=== PATIENT | female | born 1995 | race Caucasian/White ===

== ENCOUNTER 2016-06-19 15:29 | Emergency (ER) | payer OTHER ==
[2016-06-19 15:44] LABS: URINE CULTURE PL NEEDED? NO; URINE SOURCE CLEAN CATCH
[2016-06-19 16:15] LABS: MANUAL DIFF NEEDED? NO
[2016-06-19 16:17] LABS: BILIRUBIN URINE NEGATIVE (NEGATIVE); BLOOD URINE NEGATIVE (NEGATIVE); CLARITY VERY CLOUDY (CLEAR); COLOR YELLOW; GLUCOSE URINE NEGATIVE (NEGATIVE); LEUKOCYTES URINE NEGATIVE (NEGATIVE); NITRITE URINE NEGATIVE (NEGATIVE); PROTEIN URINE NEGATIVE (NEGATIVE); SP GRAVITY URINE 1.015; UROBILINOGEN URINE NORMAL
[2016-06-19 16:18] LABS: URINE CAST NONE SEEN /LPF; URINE CRYSTAL NONE SEEN /HPF; URINE EPITHELIAL CELLS <10 /HPF (<10)
[2016-06-19 16:24] LABS: BASO% 0.2 % (0.0-0.8); EOS# 0.06 X1000 (0.0-0.7); EOS% 0.7 % (0.0-10.0); HEMATOCRIT 36.9 % (37.0-47.0); HEMOGLOBIN 12.7 g/dL (12.0-16.0); IMM GRAN# 0.02 X1000 (0.0-0.04); IMM GRAN% 0.2 % (0.0-0.5); LYMPH# 2.43 X1000 (1.2-3.4); LYMPH% 26.6 % (20.5-51.1); MCH 31.6 PG (27-31); MCHC 34.4 g/dL (33-37); MCV 91.8 FL (81-99); MONO# 0.62 X1000 (0.11-0.59); MONO% 6.8 % (1.7-9.3); MPV 10.5 FL (7.4-10.4); NEUT% 65.5 % (42.2-75.2); PLT 247 X1000 (130-400); RBC 4.02 XMIL (4.2-5.4)
[2016-06-19 16:48] LABS: AGAP 8; ALKALINE PHOSPHATASE 49 U/L (32-104); AMYLASE 62 U/L (20-200); BUN 13 mg/dL (8-22); CALCIUM 9.1 mg/dL (8.8-10.2); CHLORIDE 99 mmol/L (98-107); COSMO 268; GOT 13 U/L (10-30); GPT 9 U/L (10-36); LIPASE 25 U/L (13-60); POTASSIUM 3.9 mmol/L (3.5-5.1); SODIUM 134 mmol/L (136-145); TCO2 27 mmol/L (25-35); TOTAL BILIRUBIN < 0.15 mg/dL (0.20-1.00); TOTAL PROTEIN 6.6 g/dL (6.3-8.3)
--- NOTE | 2016-06-19 17:29 | PROVIDER DOCUMENTATION ---
HPI-Abdominal Pain/GI Problem - General Chief Complaint: Flank Pain Stated Complaint: VOMITING Time Seen by Provider: 06/19/16 17:25 Source: patient Allergies/Adverse Reactions: Patient Allergies Allergy/AdvReac Type Severity Reaction Status Date / Time No Known Allergies Allergy Verified 03/16/16 11:23 Home Medications: No Home Medications 03/16/16 - History of Present Illness-ABD Nature of Presenting Problems: 21 y/o WF approx 16 weeks c/o abdominal pain, right flank pain that radiates into the right arm, with nausea and vomiting, states she constipated, denies diarrhea with this. Denies fevers or chills. vomiting only after she eats. States has not appetite. Denies fevers, chills or weight loss. Reports pain with urination, but not burning. States the site hurts when she starts trying to go. States she has not seen an obgyn yet Review of Systems - Adult - REVIEW OF SYSTEMS - ADULT Constitutional: reports: no symptoms reported. denies: chills, fever, fatique Eyes: reports: no symptoms reported. denies: blurred vision, double vision, eye pain Ears, Nose, Mouth & Throat: reports: no symptoms reported. denies: ear pain, nose pain, throat pain Cardiovascular: reports: no symptoms reported. denies: chest pain, palpitations Respiratory: reports: no symptoms reported. denies: cough, shortness of breath Gastrointestinal: reports: abdominal pain, constipation, nausea, vomiting. denies: diarrhea Genitourinary: reports: no symptoms reported. denies: dysuria, discharge, frequency, incontinence Musculoskeletal: reports: no symptoms reported. denies: bone pain, back pain, muscle aches Integumentary: reports: no symptoms reported Neurological: reports: no symptoms reported. denies: headache/migraines Psychiatric: reports: no symptoms reported Endocrine: reports: no symptoms reported Hematologic/Lymphatic: reports: no symptoms reported Allergic/Immunologic: reports: no symptoms reported All Other Systems: Reviewed and Negative Past History - Adult - PAST MEDICAL HISTORY-ADULT Review of Records: reports: Old Records Reviewed, Nursing Assessment Review, Medications Reviewed, Social history reviewed & non-contributory. Major Childhood Illnesses: reports: denies history Cardiovascular: reports: denies history Respiratory: reports: denies history Gastrointestinal: reports: denies history Obstetrical/Gynecological: reports: ovarian cysts (left ) Genitourinary: reports: denies history Musculoskeletal: reports: denies history Neurological: reports: denies history Psychiatric: reports: anxiety, suicide attempt Endocrine/Immune: reports: denies history Other Conditions: reports: denies history - PRIOR SURGERIES/PROCEDURES Surgical/Procedure History: reports: none - IMMUNIZATION STATUS Childhood Immunizations: See Nurse Assessment Flu Vaccine: See Nurse Assessment - FAMILY HISTORY Family History: reviewed, not pertinent Physical Exam-General - PHYSICAL EXAM-ADULT Initial Vital Signs Reviewed: Yes - CONSTITUTIONAL General Appearance: appears well, alert, no apparent distress - EYES Eyes: PERRL/EOMI, pink conjunctivae - HEAD, EARS, NOSE, MOUTH & THROAT HENMT: normocephalic/atraumatic, moist mucous membranes, normal ENT inspection - NECK Neck: non-tender, full range of motion, supple, normal inspection. negative: C- spine tenderness - RESPIRATORY Respiratory: chest non-tender, lungs clear, normal breath sounds, no pleuratic chest pain, no respiratory distress, no accessory muscle use. negative: respiratory distress, decreased breath sounds, accessory muscle use, crackles, rales, rhonchi, wheezing - CARDIOVASCULAR Cardiovascular: normal peripheral pulses, regular rate, rhythm, no edema - GASTROINTESTINAL (ABDOMEN) Abdominal Exam: normal bowel sounds, non tender, soft, no organomegaly, no pulsatile mass, other (fundus at 1 inch below the umbilicus). negative: abdominal bruit, abnormal bowel sounds, distended, guarding, rigid, rebound, tenderness - LYMPHATIC Lymphatic: no adenopathy - MUSCULOSKELETAL Extremity: normal gait - SKIN Integumentary: normal color, normal turgor, warm/dry - NEUROLOGIC Neurologic: grossly normal, no motor/sensory deficits - PSYCHIATRIC Psych/Mental Status: normal mood/affect, normal thought content, normal thought process, oriented x 3 Progress - PLAN OF CARE/RESULTS Progress/Plan/Lab Results: Vital Signs Temp Pulse Resp BP Pulse Ox 06/19/16 15:36 97.8 F 85 18 126/69 100 No Known Allergies Allergy (Verified 03/16/16 11:23) No Home Medications 03/16/16 Dietary Diet NPO Start Sat Jun 19 1540 Laboratory 06/19/16 06/19/16 06/19/16 16:00 16:00 16:00 WBC 9.14 RBC 4.02 L Hgb 12.7 Hct 36.9 L MCV 91.8 MCH 31.6 H MCHC 34.4 RDW Std Deviation 12.8 Plt Count 247 MPV 10.5 H Immature Gran % (Auto) 0.2 Neut % (Auto) 65.5 Lymph % (Auto) 26.6 [place] % (Auto) 6.8 Eos % (Auto) 0.7 Baso % (Auto) 0.2 Immature Gran # (Auto) 0.02 Neut # (Auto) 5.99 Lymph # (Auto) 2.43 [place] # (Auto) 0.62 H Eos # (Auto) 0.06 Baso # (Auto) 0.02 Sodium 134 L Potassium 3.9 Chloride 99 Carbon Dioxide 27 Anion Gap 8 BUN 13 Creatinine 0.5 Estimated GFR/1.73 m2 > 60 BUN/Creatinine Ratio 26 Glucose 90 Calculated Osmolality 268 Calcium 9.1 Total Bilirubin < 0.15 L AST 13 ALT 9 L Alkaline Phosphatase 49 Total Protein 6.6 Albumin 4.0 Globulin 3.0 Albumin/Globulin Ratio 2.0 Amylase 62 Lipase 25 Ser , Semi-Qnt 80846.0 Urine Source Urine Color Urine Clarity Urine pH Ur Specific [place] Urine Protein Urine Ketones Urine Blood Urine Nitrite Urine Bilirubin Urine Urobilinogen Urine Microscopic RBC Urine WBC Ur Epithelial Cells Urine Crystals Urine Bacteria Urine Casts Urine Yeast Urine Glucose 06/19/16 15:40 WBC RBC Hgb Hct MCV MCH MCHC RDW Std Deviation Plt Count MPV Immature Gran % (Auto) Neut % (Auto) Lymph % (Auto) [place] % (Auto) Eos % (Auto) Baso % (Auto) Immature Gran # (Auto) Neut # (Auto) Lymph # (Auto) [place] # (Auto) Eos # (Auto) Baso # (Auto) Sodium Potassium Chloride Carbon Dioxide Anion Gap BUN Creatinine Estimated GFR/1.73 m2 BUN/Creatinine Ratio Glucose Calculated Osmolality Calcium Total Bilirubin AST ALT Alkaline Phosphatase Total Protein Albumin Globulin Albumin/Globulin Ratio Amylase Lipase Ser , Semi-Qnt Urine Source CLEAN CATCH Urine Color YELLOW Urine Clarity VERY CLOUDY A Urine pH 7.0 Ur Specific [place] 1.015 Urine Protein NEGATIVE Urine Ketones NEGATIVE Urine Blood NEGATIVE Urine Nitrite NEGATIVE Urine Bilirubin NEGATIVE Urine Urobilinogen NORMAL Urine Microscopic RBC Not Reportable Urine WBC NEGATIVE Ur Epithelial Cells <10 Urine Crystals NONE SEEN Urine Bacteria NEGATIVE Urine Casts NONE SEEN Urine Yeast NONE SEEN Urine Glucose NEGATIVE Orders Category Date Time Status NPO Diet 06/19/16 15:40 Active US OBS COMPLETE > 14 WKS [US] Stat Exams 06/19/16 17:29 Taken AMYLASE [CHEM] Stat Lab 06/19/16 16:00 Completed CBC WITH ELECTRONIC DIFF [HEME] Stat Lab 06/19/16 16:00 Completed COMPREHENSIVE METABOLIC PANEL [CHEM] Stat Lab 06/19/16 16:00 Completed LIPASE [CHEM] Stat Lab 06/19/16 16:00 Completed QUANT TEST Stat Lab 06/19/16 16:[address] W/POSS RFLX CULT [URINALYSIS] Stat Lab 06/19/16 15:40 Completed - ULTRASOUND (By Radiology) 1 US Study: Transvaginal Impression: Normal (viable iup. closed cervix, although short. placenta low lying. per radiology) Departure - Departure Time of Disposition Order: 18:50 DIAGNOSIS: Qualifiers: Weeks of gestation: 16 weeks Qualified Code(s): Z3A.16 - 16 weeks gestation of Disposition: HOME 01 Certified Medical Emergency: Emergent Condition: Stable Additional Instructions: Follow up with the [facility] nurse ED Follow Up Instructions: You have been treated by a care provider in the Emergency Department. These instructions are being provided to you so you can have an understanding of how to care for yourself upon discharge. Upon discharge from the Emergency Department, you are responsible for making arrangements for follow-up care by a physician of your choice. Take all prescribed medications as directed. Return to the Emergency Department immediately for any new or worsening symptoms. You may call the Physician Referral phone number at [phone] to obtain a list of Physicians who are taking new patients. Attestation - Physician/ Mid-level Attestation Patient care was provided by Mid-level provider (WAITER/WAITRESS BAR/PA):: Yes Mid-level provider:: Teresita Yan Mid-level documentation review:: The Mid-level provider documentation, treatment plan and medical decision making was reviewed by the physician who agrees with all treatment and medical decision making by the MLP.
[2016-06-19 19:08] VITALS: BP 109/075
--- NOTE | 2016-06-19 21:02 | Diag Imaging Result Document ---
PROCEDURE NAME: US OBS COMPLETE > 14 WKS - 06/19/2016 OBSTETRIC ULTRASOUND: COMPARISON: None available for this . FINDINGS: There is a single viable intrauterine gestation. The presentation is variable and the placenta is located posteriorly. The lower tip of the placenta approaches the cervix. Continued surveillance is recommended to exclude placenta previa. The cervix measures slightly short at 2.8 cm in length. Correlation with an endovaginal ultrasound for more accurate measurement is recommended. Otherwise, no gross or placental anomalies are identified. A 4 chamber heart, umbilical cord, bladder, kidneys, stomach, and spine are identified and are grossly unremarkable. The measured heart rate is 147 beats per minute. The gestational age by ultrasound is 16 weeks 4 days. IMPRESSION: Single viable intrauterine gestation as described with a somewhat low lying placenta and slightly short cervix. Please see above discussion.
== END 2016-06-19 19:06 | disposition home or self-care (01) ==
LOC: P.ED 15:29
DX: O26.892 Other specified pregnancy related conditions, second trimester (principal); R10.9 Unspecified abdominal pain; M79.601 Pain in right arm; R11.0 Nausea; K59.00 Constipation, unspecified; R30.9 Painful micturition, unspecified; O21.9 Vomiting of pregnancy, unspecified; Z3A.16 16 weeks gestation of pregnancy; Z87.42 Personal history of other diseases of the female genital tract
CPT/HCPCS: 76805; 80053; 81001; 82150; 83690; 84702; 85025

== ENCOUNTER 2016-11-29 22:47 | Inpatient (IN) ==
[2016-11-29] MEDS ORDERED: PITOCIN 30 UNITS/LR 30 UNITS/500 ML IV.SOLN IV SCH (22:52)
[2016-11-29] MEDS ORDERED: BRETHINE SUBQ PRN (22:52)
[2016-11-29] MEDS ORDERED: STADOL IV PRN ×3 (22:52)
[2016-11-29] MEDS ORDERED: AMBIEN PO PRN (22:52)
[2016-11-29] MEDS ORDERED: KEFZOL 1 GM/D5W 1 GM/50 ML IVPB IV PRN (22:52)
[2016-11-29] MEDS ORDERED: TYLENOL PO PRN (22:52)
[2016-11-29] MEDS ORDERED: ZOFRAN IV PRN (22:52)
[2016-11-29] MEDS ORDERED: PEPCID IV PRN (22:52)
[2016-11-29] MEDS ORDERED: AMPICILLIN 2 GM/NS 2 GM/100 ML IVPB IV ONE (23:15)
[2016-11-29] MEDS: LR 1,000 ML IV SCH (23:50)
[2016-11-30 00:55] LABS: URINE SOURCE VOIDED
[2016-11-30 00:55] LABS: MANUAL DIFF NEEDED? NO
[2016-11-30] MEDS ORDERED: CYTOTEC PO ONE (01:00)
[2016-11-30 01:03] LABS: BASO% 0.2 % (0.0-0.8); EOS# 0.26 X1000 (0.0-0.7); EOS% 2.8 % (0.0-10.0); HEMATOCRIT 34.8 % (37.0-47.0); IMM GRAN# 0.07 X1000 (0.0-0.04); IMM GRAN% 0.8 % (0.0-0.5); LYMPH# 2.24 X1000 (1.2-3.4); LYMPH% 24.3 % (20.5-51.1); MCH 31.3 PG (27-31); MCHC 34.5 g/dL (33-37); MCV 90.9 FL (81-99); MONO# 0.96 X1000 (0.11-0.59); MONO% 10.4 % (1.7-9.3); MPV 12.3 FL (7.4-10.4); NEUT% 61.5 % (42.2-75.2); PLT 172 X1000 (130-400); RBC 3.83 XMIL (4.2-5.4)
[2016-11-30 01:35] LABS: BILIRUBIN URINE NEGATIVE (NEGATIVE); BLOOD URINE 1+ (NEGATIVE); CLARITY CLEAR (CLEAR); COLOR YELLOW; GLUCOSE URINE NEGATIVE (NEGATIVE); LEUKOCYTES URINE 2+ (NEGATIVE); NITRITE URINE NEGATIVE (NEGATIVE); PH URINE 6.5; PROTEIN URINE NEGATIVE (NEGATIVE); UROBILINOGEN URINE NORMAL
[2016-11-30 01:36] LABS: UR AMPHETAMINES QUAL NONE DETECTED (NONE DETECT); UR BARBITUATES QUAL NONE DETECTED (NONE DETECT); UR BENZODIAZEPIN QUAL NONE DETECTED (NONE DETECT); UR CANNABINOIDS QUAL NONE DETECTED (NONE DETECT); UR COCAINE QUAL NONE DETECTED (NONE DETECT); UR MDMA QUAL NONE DETECTED (NONE DETECT); UR METHADONE QUAL NONE DETECTED (NONE DETECT); UR METHAMPHETAMINE QUAL NONE DETECTED (NONE DETECT); UR OPIATES QUAL NONE DETECTED (NONE DETECT); UR OXYCODONE QUAL NONE DETECTED (NONE DETECT); UR PCP QUAL NONE DETECTED (NONE DETECT); UR TCA QUAL NONE DETECTED (NONE DETECT)
[2016-11-30] MEDS ORDERED: CYTOTEC ONE (03:17)
[2016-11-30] MEDS: AMPICILLIN 1 GM/NS 1 GM/50 ML IVPB IV SCH ×3 (04:05→11:40)
[2016-11-30] MEDS: LR 1,000 ML IV SCH ×2 (05:53→12:23)
[2016-11-30] MEDS ORDERED: FENTANYL-BUPIV-NS 2 MCG-0.1% 200 ML EPIDURAL PRN (08:44)
[2016-11-30] MEDS ORDERED: XYLOCAINE-MPF 2% ONE ×2 (11:26→12:16)
[2016-11-30] MEDS ORDERED: BENADRYL IV PRN (13:50)
[2016-11-30] MEDS ORDERED: PITOCIN 30 UNITS/LR 30 UNITS/500 ML IV.SOLN IV ONE (13:50)
[2016-11-30] MEDS ORDERED: PERI MEDS (DERMOPLAST/NUPERCAINAL/TUCKS) MISC PRN (13:50)
[2016-11-30] MEDS ORDERED: XYLOCAINE-MPF 1% INJ PRN (13:50)
[2016-11-30] MEDS ORDERED: CYTOTEC PO PRN (13:50)
[2016-11-30] MEDS ORDERED: PITOCIN IM PRN (13:50)
[2016-11-30] MEDS ORDERED: HYDROXYZINE IM PRN (13:50)
[2016-11-30] MEDS ORDERED: BENADRYL PO PRN (13:50)
[2016-11-30] MEDS ORDERED: AMBIEN PO PRN (13:50)
[2016-11-30] MEDS ORDERED: BOOSTRIX VACCINE IM ONE (13:50)
[2016-11-30] MEDS ORDERED: MINERAL OIL PO PRN (13:50)
[2016-11-30] MEDS ORDERED: M-M-R II VACCINE SUBQ ONE (13:50)
[2016-11-30] MEDS ORDERED: PITOCIN 20 UNITS/LR 20 UNITS/1,000 ML IV.SOLN IV SCH (13:50)
[2016-11-30] MEDS ORDERED: HYDROXYZINE PO PRN (13:50)
--- NOTE | 2016-11-30 14:22 | OPERATIVE NOTE ---
PROCEDURE DATE: 11/30/2016 PREDELIVERY DIAGNOSES: 1. Intrauterine at 39 weeks. 2. Late care. 3. Drug abuse during the . Subutex maintenance during . 4. Tobacco abuse. 5. Group B streptococcus carrier, status positive. POST-DELIVERY DIAGNOSES: 1. Intrauterine at 39 weeks. 2. Late care. 3. Drug abuse during the . Subutex maintenance during . 4. Tobacco abuse. 5. Group B streptococcus carrier, status positive. PROCEDURE: Vaginal delivery. FINDINGS: Viable male . PHYSICIAN: Jignesh Heebrt MD. ANESTHESIA: Epidural with Dr. Brendan Mack. FINDINGS: Viable male , 7 pounds 8 ounces. Do not have Apgars. There were no lacerations or tears. Placenta was mature, but delivered intact without difficulty. Cord was 3 vessels. Count was correct. INDICATIONS: Ms. Pineda is a 21-year-old, 4 para 2, with estimated date of delivery of 12/07/2016, who was admitted last night for labor induction. DESCRIPTION OF PROCEDURE: She received Cytotec this morning. She was started on Pitocin, was artificially ruptured. Received epidural anesthesia. Labored without distress or dystocia, became complete, at which point the baby crowned and the bed was broken down. She was prepped and draped. With the next push, she delivered a viable male , occiput anterior, over an intact perineum. Once head delivered, shoulders and body delivered without difficulty. The was placed on mother's abdomen. Cord was doubly clamped and cut and care of was taken over by nursery personnel. Cord blood was obtained. The cord was noted to be 3 vessels. Then gentle traction on the cord resulted in delivery of the placenta after approximately 3 minutes. It was inspected and found to be intact. At this point, the perineum and vagina were inspected. There were no lacerations or tears. There were no clots or foreign materials. ESTIMATED BLOOD LOSS: 100 mL. Expect routine . cc: MD Shonna Irving MD
[2016-11-30] MEDS: MOTRIN PO PRN ×2 (14:48→22:37)
[2016-11-30] MEDS: SUBUTEX SL SCH (20:05)
[2016-11-30] MEDS: PERICOLACE PO SCH (20:06)
[2016-12-01] MEDS: TYLENOL PO PRN ×3 (04:38→20:12)
[2016-12-01 05:50] LABS: MANUAL DIFF NEEDED? NO
[2016-12-01 06:04] LABS: BASO% 0.1 % (0.0-0.8); EOS# 0.14 X1000 (0.0-0.7); HEMATOCRIT 34.7 % (37.0-47.0); HEMOGLOBIN 11.7 g/dL (12.0-16.0); IMM GRAN# 0.04 X1000 (0.0-0.04); IMM GRAN% 0.3 % (0.0-0.5); LYMPH# 2.82 X1000 (1.2-3.4); LYMPH% 20.2 % (20.5-51.1); MCH 30.9 PG (27-31); MCHC 33.7 g/dL (33-37); MCV 91.6 FL (81-99); MONO# 1.54 X1000 (0.11-0.59); MPV 11.5 FL (7.4-10.4); NEUT% 67.4 % (42.2-75.2); PLT 167 X1000 (130-400); RBC 3.79 XMIL (4.2-5.4)
[2016-12-01] MEDS: MOTRIN PO PRN ×2 (08:16→16:17)
[2016-12-01] MEDS: SUBUTEX SL SCH ×2 (09:06→20:13)
[2016-12-01] MEDS: PRECARE PO SCH (09:06)
[2016-12-01] MEDS: PERICOLACE PO SCH (20:12)
[2016-12-02] MEDS: MOTRIN PO PRN ×2 (01:37→09:14)
[2016-12-02 07:23] VITALS: BP 114/71
[2016-12-02] MEDS: PRECARE PO SCH (09:14)
[2016-12-02] MEDS: SUBUTEX SL SCH (09:14)
== END 2016-12-02 14:35 | disposition home or self-care (01) ==
LOC: P.LD 22:47 → P.WC 11-30 15:48
PROVIDERS: ADMIT Obstetrics & Gynecology; ATTEND Obstetrics & Gynecology